=== PATIENT | male | born 1995 | race Caucasian/White ===

== ENCOUNTER 2017-02-27 16:59 | Emergency (ER) | payer SELFPAY ==
[~2017-02-27] VITALS: Ht 188 cm; Wt 69.2 kg
[2017-02-27 17:01] VITALS: BP 168/78
== END 2017-02-27 18:13 | disposition home or self-care (01) ==
LOC: ED 18:05
DX: S20.211A Contusion of right front wall of thorax, initial encounter (principal); F17.200 Nicotine dependence, unspecified, uncomplicated; W19.XXXA Unspecified fall, initial encounter; Y93.89 Activity, other specified; Y99.0 Civilian activity done for income or pay; Y92.69 Other specified industrial and construction area as the place of occurrence of the external cause
CPT/HCPCS: 99284

== ENCOUNTER 2017-05-07 19:15 | Emergency (ER) | payer MEDICAID, OTHER ==
[~2017-05-07] VITALS: Ht 188 cm; Wt 63.3 kg
[2017-05-07] MEDS ORDERED: SODIUM CHLORIDE FLUSH 10ML SYR IVF ONE (20:30)
[2017-05-07] MEDS ORDERED: SODIUM CHLORIDE 0.9% 1,000ML IV ONE (20:30)
[2017-05-07] MEDS ORDERED: KETOROLAC 30 MG/1 ML IVPush ONE (20:30)
[2017-05-07] MEDS ORDERED: KETOROLAC 30 MG/1 ML ONE (20:39)
[2017-05-07 20:41] LABS: HEMATOCRIT 49.5 % (39.2-51.8); HEMOGLOBIN 17.2 g/dL (13.7-18.0); WHITE BLOOD COUNT 9.7 x10^3/uL (3.4-10)
[2017-05-07 20:52] LABS: BLOOD UREA NITROGEN 20 mg/dL (7-18)
[2017-05-07 20:56] LABS: ASPARTATE AMINO TRANSFERASE 18 U/L (15-37)
[2017-05-07] MEDS ORDERED: CEFTRIAXONE 250 MG IM ONE (21:30)
[2017-05-07] MEDS ORDERED: AZITHROMYCIN 500 MG TABLET PO ONE (21:30)
[2017-05-07] MEDS ORDERED: CEFTRIAXONE 1,000 MG ONE (21:36)
[2017-05-07] MEDS ORDERED: LIDOCAINE 1%, 10ML ONE (21:36)
[2017-05-07] MEDS ORDERED: AZITHROMYCIN 250 MG TABLET ONE (21:36)
[2017-05-07 21:53] VITALS: BP 140/100
== END 2017-05-07 22:09 | disposition home or self-care (01) ==
LOC: ED 21:38
DX: A56.01 Chlamydial cystitis and urethritis (principal)
CPT/HCPCS: 36415; 74000; 76770; 80053; 81001; 85025; 87086; 87491; 87591; 96361; 96372; 96374; 99285; J0696; J1885; J7030

== ENCOUNTER 2017-06-05 15:09 | Emergency (ER) | payer MEDICAID ==
[~2017-06-05] VITALS: Ht 157.5 cm; Wt 70.0 kg
[2017-06-05] MEDS ORDERED: SODIUM CHLORIDE 0.9% 1,000 ML IV ONE (15:18)
[2017-06-05] MEDS ORDERED: SODIUM CHLORIDE FLUSH 10ML SYR IVF ONE (15:30)
[2017-06-05 15:39] LABS: BASOPHILS # (AUTO) 0.04 x10^3/uL (0-0.1); BASOPHILS % (AUTO) 1 % (0-1); EOSINOPHILS # (AUTO) 0.15 x10^3/uL (0-0.4); EOSINOPHILS % (AUTO) 2 % (1-7); LYMPHOCYTES # (AUTO) 2.56 x10^3/uL (1-3.4); LYMPHOCYTES % (AUTO) 39 % (22-44); MD NO; MEAN CORPUSCULAR HEMOGLOBIN 30.8 pg (27.5-34.5); MEAN CORPUSCULAR HGB CONC 34.4 g/dL (33.2-36.2); MEAN CORPUSCULAR VOLUME 89.4 fL (81-97); MEAN PLATELET VOLUME 6.7 fL (7.4-10.4); MONOCYTES # (AUTO) 0.82 x10^3/uL (0.2-0.8); MONOCYTES % (AUTO) 13 % (2-9); NEUTROPHILS # (AUTO) 2.96 x10^3/uL (1.8-6.8); NEUTROPHILS % (AUTO) 45 % (42-75); PLATELET COUNT 308 x10^3/uL (130-400); RED BLOOD COUNT 5.47 x10^6/uL (4.38-5.82); RED CELL DISTRIBUTION WIDTH 13.1 % (9.4-14.8)
[2017-06-05] MEDS ORDERED: LABETALOL 5MG/ML, 20ML ONE (15:53)
[2017-06-05] MEDS ORDERED: LORazepam 2 MG/ML, 1ML ONE (15:54)
[2017-06-05] MEDS ORDERED: SODIUM CHLORIDE 0.9% 1,000ML IVBOLUS ONE (16:00)
[2017-06-05] MEDS ORDERED: LABETALOL 5MG/ML, 20ML IVPush ONE (16:00)
[2017-06-05] MEDS ORDERED: LORazepam 2 MG/ML, 1ML IVPush ONE (16:00)
[2017-06-05 16:08] LABS: ALBUMIN 4.5 g/dL (3.4-5.0); ANION GAP 11 mmol/L (5-15); CALCIUM 9.2 mg/dL (8.5-10.1); CHLORIDE 106 mmol/L (98-107)
[2017-06-05 16:16] LABS: ALANINE AMINOTRANSFERASE 42 U/L (12-78); ALKALINE PHOSPHATASE 87 U/L (45-117); BILIRUBIN,TOTAL 0.6 mg/dL (0.2-1.0); CREATININE 1.05 mg/dL (0.7-1.3); TOTAL PROTEIN 8.3 g/dL (6.4-8.2); TROPONIN I < 0.015 ng/mL (0.000-0.045)
[2017-06-05] MEDS ORDERED: KETOROLAC 30 MG/1 ML ONE (16:25)
[2017-06-05] MEDS ORDERED: OMNIPAQUE 350 MG/ML, 100ML BOTTLE ONE (16:30)
[2017-06-05 17:46] VITALS: BP 113/68
== END 2017-06-05 18:09 | disposition home or self-care (01) ==
LOC: ED 17:42
DX: R07.89 Other chest pain (principal); F41.9 Anxiety disorder, unspecified
CPT/HCPCS: 36415; 71045; 71275; 80053; 84484; 85025; 93005; 96361; 96374; 96375; 99285; J2060; J7030; Q9967

== ENCOUNTER 2018-01-23 18:09 | Emergency (ER) | payer MEDICAID ==
[~2018-01-23] VITALS: Ht 188 cm; Wt 90.1 kg
[2018-01-23 18:31] VITALS: BP 113/77
[2018-01-23 19:14] LABS: BASOPHILS # (AUTO) 0.03 x10^3/uL (0-0.1); BASOPHILS % (AUTO) 1 % (0-1); EOSINOPHILS # (AUTO) 0.08 x10^3/uL (0-0.4); EOSINOPHILS % (AUTO) 1 % (1-7); LYMPHOCYTES # (AUTO) 1.98 x10^3/uL (1-3.4); LYMPHOCYTES % (AUTO) 30 % (22-44); MD NO; MEAN CORPUSCULAR HEMOGLOBIN 31.1 pg (27.5-34.5); MEAN CORPUSCULAR VOLUME 88.8 fL (81-97); MEAN PLATELET VOLUME 7.1 fL (7.4-10.4); MONOCYTES # (AUTO) 0.45 x10^3/uL (0.2-0.8); MONOCYTES % (AUTO) 7 % (2-9); NEUTROPHILS # (AUTO) 4.11 x10^3/uL (1.8-6.8); NEUTROPHILS % (AUTO) 62 % (42-75); PLATELET COUNT 211 x10^3/uL (130-400); RED BLOOD COUNT 5.53 x10^6/uL (4.38-5.82)
[2018-01-23 19:23] LABS: CALCIUM 9.5 mg/dL (8.5-10.1); CHLORIDE 104 mmol/L (98-107)
[2018-01-23 19:29] LABS: ALANINE AMINOTRANSFERASE 29 U/L (12-78); ALBUMIN 4.7 g/dL (3.4-5.0); ALKALINE PHOSPHATASE 85 U/L (45-117); ANION GAP 5 mmol/L (5-15); TOTAL PROTEIN 8.4 g/dL (6.4-8.2)
[2018-01-23] MEDS ORDERED: MORPHINE SULFATE 4 MG/ML, 1ML IVPush PRN (19:30)
[2018-01-23] MEDS ORDERED: SODIUM CHLORIDE FLUSH 10ML SYR IVF ONE (19:30)
[2018-01-23 19:32] LABS: MICROSCOPIC NOT IND
[2018-01-23 19:35] LABS: CULTURE INDICATED? NO
[2018-01-23] MEDS ORDERED: MORPHINE SULFATE 4 MG/ML, 1ML ONE (19:51)
== END 2018-01-23 21:44 | disposition home or self-care (01) ==
LOC: ED 20:58
DX: K29.00 Acute gastritis without bleeding (principal); F17.200 Nicotine dependence, unspecified, uncomplicated
CPT/HCPCS: 36415; 74022; 76700; 80053; 81003; 83690; 85025; 93005; 96374

== ENCOUNTER 2018-05-23 22:51 | Observation (INO) | payer MEDICAID, OTHER ==
[~2018-05-23] VITALS: Ht 188 cm; Wt 70.0 kg
--- NOTE | 2018-05-23 23:16 | NUR ---
PT SENT HERE FOR [facility] ON A LEGAL HOLD. PT WRAPPED PHONE CORD AROUND NECK 3 DAYS AGO TO HELP SLEEP. PT HAS BEEN SMOKING HEROIN FOR APPROX 4 MONTHS. VSS. UA SENT TO LAB. ROOM SECURED. 1 BAG AND BACKPACK PLACED LABELED AND SECURED. PT HAS NO NEEDS AT THIS TIME.
[2018-05-23 23:28] LABS: AMPHETAMINE SCREEN, URINE Negative (Negative); BARBITURATE SCREEN, URINE Negative (Negative); BENZODIAZEPINE SCREEN, URINE Negative (Negative); CANNABINOID SCREEN, URINE Positive (Negative); COCAINE SCREEN, URINE Negative (Negative); METHADONE SCREEN, URINE Negative (Negative); OPIATE SCREEN, URINE Positive (Negative)
[2018-05-23 23:46] LABS: BASOPHILS # (AUTO) 0.04 x10^3/uL (0-0.1); BASOPHILS % (AUTO) 1 % (0-1); EOSINOPHILS # (AUTO) 0.19 x10^3/uL (0-0.4); EOSINOPHILS % (AUTO) 2 % (1-7); LYMPHOCYTES # (AUTO) 2.82 x10^3/uL (1-3.4); LYMPHOCYTES % (AUTO) 34 % (22-44); MD NO; MEAN CORPUSCULAR HGB CONC 34.1 g/dL (33.2-36.2); MEAN CORPUSCULAR VOLUME 90.9 fL (81-97); MEAN PLATELET VOLUME 7.5 fL (7.4-10.4); MONOCYTES # (AUTO) 0.78 x10^3/uL (0.2-0.8); MONOCYTES % (AUTO) 9 % (2-9); NEUTROPHILS # (AUTO) 4.44 x10^3/uL (1.8-6.8); NEUTROPHILS % (AUTO) 54 % (42-75); PLATELET COUNT 227 x10^3/uL (130-400); RED CELL DISTRIBUTION WIDTH 12.3 % (9.4-14.8)
[2018-05-23 23:49] LABS: ALBUMIN 4.3 g/dL (3.4-5.0); ANION GAP 7 mmol/L (5-15); CALCIUM 8.7 mg/dL (8.5-10.1); CHLORIDE 104 mmol/L (98-107)
[2018-05-23 23:53] LABS: ALANINE AMINOTRANSFERASE 32 U/L (12-78); ALKALINE PHOSPHATASE 70 U/L (45-117); BILIRUBIN,TOTAL 0.8 mg/dL (0.2-1.0); CREATININE 1.05 mg/dL (0.7-1.3); SALICYLATE LEVEL 3.6 mg/dL (2.8-20.0); TOTAL PROTEIN 7.7 g/dL (6.4-8.2)
[2018-05-23 23:54] LABS: ACETAMINOPHEN < 2 mcg/mL (10-30)
--- NOTE | 2018-05-24 00:49 | NUR ---
ADMITTING MD AT BEDSIDE
[2018-05-24 01:28] VITALS: BP 132/88
[2018-05-24] MEDS ORDERED: LIDODERM 5% PATCH TD PRN (01:30)
[2018-05-24] MEDS ORDERED: NICOTINE 21 MG/24 HR PATCH.TD24 TD SCH (01:30)
[2018-05-24] MEDS ORDERED: DOCUSATE 100 MG CAPSULE PO PRN (01:30)
[2018-05-24] MEDS ORDERED: ONDANSETRON ODT 4 MG PO PRN (01:30)
[2018-05-24 08:17] VITALS: BP 120/71
[2018-05-24] MEDS ORDERED: LOPERAMIDE 2 MG CAPSULE PO PRN (13:30)
[2018-05-24] MEDS: LORazepam 0.5MG TABLET PO PRN ×2 (14:23→20:26)
[2018-05-24 14:30] VITALS: BP_SYST 103; BP_SYST 110; BP_DIAS 69; BP_DIAS 75
[2018-05-24 19:47] VITALS: BP 99/67
[2018-05-24] MEDS: TRAZODONE 50MG TABLET PO PRN (20:25)
[2018-05-24] MEDS: NICOTINE 21 MG/24 HR PATCH.TD24 TD SCH (20:25)
[2018-05-25] MEDS: LORazepam 0.5MG TABLET PO PRN ×4 (00:32→20:11)
[2018-05-25] MEDS: ACETAMINOPHEN 325 MG TABLET PO PRN ×3 (00:32→20:11)
[2018-05-25 07:58] VITALS: BP 132/80
[2018-05-25] MEDS ORDERED: ZIPRASIDONE 20 MG INJ IM ONE (12:00)
[2018-05-25 15:08] VITALS: BP 152/114
[2018-05-25] MEDS: NICOTINE 21 MG/24 HR PATCH.TD24 TD SCH (15:39)
[2018-05-25 20:00] VITALS: BP 101/66
[2018-05-25] MEDS: TRAZODONE 50MG TABLET PO PRN (20:11)
[2018-05-26] MEDS: LORazepam 0.5MG TABLET PO PRN ×2 (00:23→08:32)
[2018-05-26 08:25] VITALS: BP 108/73
[2018-05-26 13:10] VITALS: BP 133/72
[2018-05-26] MEDS ORDERED: LORazepam 2 MG/ML, 1ML IM STA (13:12)
[2018-05-26] MEDS ORDERED: LORazepam 2 MG/ML, 1ML ONE (13:14)
[2018-05-26] MEDS ORDERED: LORazepam 2 MG/ML, 1ML IM PRN (13:30)
[2018-05-26] MEDS ORDERED: LORazepam 1MG TABLET ONE (13:33)
[2018-05-26] MEDS ORDERED: LORazepam 1MG TABLET PO ONE (14:00)
[2018-05-26] MEDS: NICOTINE 21 MG/24 HR PATCH.TD24 TD SCH (18:04)
[2018-05-26 20:06] VITALS: BP 120/72
[2018-05-26] MEDS: TRAZODONE 50MG TABLET PO PRN (20:16)
[2018-05-26] MEDS: LORazepam 1MG TABLET PO PRN (21:38)
[2018-05-27] MEDS: LORazepam 1MG TABLET PO PRN ×4 (03:41→20:52)
[2018-05-27 08:00] VITALS: BP 103/66
[2018-05-27] MEDS: ACETAMINOPHEN 325 MG TABLET PO PRN (11:46)
[2018-05-27 14:10] VITALS: BP 115/68
[2018-05-27] MEDS: NICOTINE 21 MG/24 HR PATCH.TD24 TD SCH (16:52)
[2018-05-27 19:19] VITALS: BP 114/65
[2018-05-27] MEDS: TRAZODONE 50MG TABLET PO PRN (20:52)
[2018-05-28] MEDS: LORazepam 1MG TABLET PO PRN ×5 (00:39→20:58)
[2018-05-28 07:36] VITALS: BP 111/75
[2018-05-28] MEDS: NICOTINE 21 MG/24 HR PATCH.TD24 TD SCH (18:37)
[2018-05-28 20:24] VITALS: BP 129/84
[2018-05-28] MEDS: TRAZODONE 50MG TABLET PO PRN (20:58)
[2018-05-29] MEDS: LORazepam 1MG TABLET PO PRN (07:48)
[2018-05-29] MEDS: ACETAMINOPHEN 325 MG TABLET PO PRN ×2 (07:49→12:26)
[2018-05-29 07:58] VITALS: BP 108/70
[2018-05-29] MEDS ORDERED: IBUPROFEN 600 MG TABLET PO PRN (14:30)
[2018-05-29 14:32] VITALS: BP 128/87
[2018-05-29] MEDS: LORazepam 0.5MG TABLET PO PRN ×2 (15:00→20:14)
[2018-05-29] MEDS: NICOTINE 21 MG/24 HR PATCH.TD24 TD SCH (18:31)
[2018-05-29 19:41] VITALS: BP 122/74
[2018-05-29] MEDS: TRAZODONE 50MG TABLET PO PRN (20:14)
[2018-05-30 07:30] VITALS: BP 115/74
== END 2018-05-30 12:03 | disposition home or self-care (01) ==
LOC: ED 23:24 → INTOOBSV 05-24 00:27 → EDIP 05-24 00:27 → 2N 05-24 01:29
PROVIDERS: ADMIT Hospitalist; ATTEND Hospitalist
DX: T14.91XA Suicide attempt, initial encounter (principal); F15.90 Other stimulant use, unspecified, uncomplicated; F17.210 Nicotine dependence, cigarettes, uncomplicated; F33.9 Major depressive disorder, recurrent, unspecified; X83.8XXA Intentional self-harm by other specified means, initial encounter; Y93.89 Activity, other specified; Y92.89 Other specified places as the place of occurrence of the external cause; Y99.8 Other external cause status
CPT/HCPCS: 36415; 80053; 80307; 80329; 85025; 93005; 96372; 99284; G0378; J2060; J3486; G0480

== ENCOUNTER 2019-05-20 14:14 | Emergency (ER) | payer MEDICAID ==
--- NOTE | 2019-05-20 14:23 | NUR ---
NIL FOR TRIAGE
--- NOTE | 2019-05-20 14:41 | NUR ---
[email or web address]@[id number]
--- NOTE | 2019-05-20 14:57 | NUR ---
[email or web address]@[id number]
== END 2019-05-20 14:59 | disposition left against medical advice (07) ==
LOC: ED 14:48
DX: R05 Cough (principal); Z53.21 Procedure and treatment not carried out due to patient leaving prior to being seen by health care provider

== ENCOUNTER 2019-09-10 15:01 | Emergency (ER) | payer MEDICAID, OTHER ==
[~2019-09-10] VITALS: Ht 193 cm; Wt 67.7 kg
[2019-09-10 15:04] VITALS: BP 147/92
[2019-09-10 15:32] LABS: BASOPHILS # (AUTO) 0.03 x10^3/uL (0-0.1); BASOPHILS % (AUTO) 1 % (0-1); EOSINOPHILS # (AUTO) 0.12 x10^3/uL (0-0.4); EOSINOPHILS % (AUTO) 2 % (1-7); LYMPHOCYTES # (AUTO) 2.04 x10^3/uL (1-3.4); LYMPHOCYTES % (AUTO) 34 % (22-44); MD NO; MEAN CORPUSCULAR HEMOGLOBIN 30.9 pg (27.5-34.5); MEAN CORPUSCULAR HGB CONC 33.8 g/dL (33.2-36.2); MEAN CORPUSCULAR VOLUME 91.3 fL (81-97); MEAN PLATELET VOLUME 6.8 fL (7.4-10.4); MONOCYTES % (AUTO) 8 % (2-9); NEUTROPHILS # (AUTO) 3.27 x10^3/uL (1.8-6.8); NEUTROPHILS % (AUTO) 55 % (42-75); PLATELET COUNT 216 x10^3/uL (130-400); RED BLOOD COUNT 4.23 x10^6/uL (4.38-5.82); RED CELL DISTRIBUTION WIDTH 12.5 % (9.4-14.8)
[2019-09-10 15:43] LABS: ALANINE AMINOTRANSFERASE 27 U/L (12-78); ALBUMIN 3.8 g/dL (3.4-5.0); ANION GAP 6 mmol/L (5-15); CALCIUM 9.1 mg/dL (8.5-10.1); CHLORIDE 104 mmol/L (98-107); CREATININE 1.02 mg/dL (0.7-1.3)
[2019-09-10 15:46] LABS: ALKALINE PHOSPHATASE 74 U/L (45-117); BILIRUBIN,TOTAL 0.4 mg/dL (0.2-1.0); TOTAL PROTEIN 7.3 g/dL (6.4-8.2)
== END 2019-09-10 16:54 | disposition home or self-care (01) ==
LOC: ED 15:26
DX: K02.9 Dental caries, unspecified (principal); K08.89 Other specified disorders of teeth and supporting structures; R94.31 Abnormal electrocardiogram [ECG] [EKG]
CPT/HCPCS: 36415; 80053; 85025; 93005; 99284

== ENCOUNTER 2019-12-04 16:15 | Emergency (ER) | payer BC, OTHER ==
[~2019-12-04] VITALS: Ht 185.4 cm; Wt 65.2 kg
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
[2019-12-04] MEDS ORDERED: MAALOX/HYOSCYAMINE/LIDOCAINE 45 ML BTL ONE (16:41)
--- NOTE | 2019-12-04 16:49 | NUR ---
PT AMBULATED TO THE BR W/ A STEADY GAIT. URINE COLLECTED AND SENT TO LAB.
--- NOTE | 2019-12-04 16:59 | NUR ---
US AT BEDSIDE.
[2019-12-04] MEDS ORDERED: MAALOX/HYOSCYAMINE/LIDOCAINE 45 ML BTL PO ONE (17:00)
[2019-12-04 17:02] LABS: MICROSCOPIC NOT IND
[2019-12-04 17:48] LABS: BASOPHILS # (AUTO) 0.02 x10^3/uL (0-0.1); BASOPHILS % (AUTO) 0 % (0-1); EOSINOPHILS # (AUTO) 0.08 x10^3/uL (0-0.4); EOSINOPHILS % (AUTO) 2 % (1-7); LYMPHOCYTES # (AUTO) 1.64 x10^3/uL (1-3.4); LYMPHOCYTES % (AUTO) 32 % (22-44); MD NO; MEAN CORPUSCULAR HEMOGLOBIN 30.8 pg (27.5-34.5); MEAN CORPUSCULAR HGB CONC 34.7 g/dL (33.2-36.2); MEAN CORPUSCULAR VOLUME 88.9 fL (81-97); MEAN PLATELET VOLUME 7.4 fL (7.4-10.4); MONOCYTES # (AUTO) 0.37 x10^3/uL (0.2-0.8); MONOCYTES % (AUTO) 7 % (2-9); NEUTROPHILS # (AUTO) 2.98 x10^3/uL (1.8-6.8); NEUTROPHILS % (AUTO) 59 % (42-75); PLATELET COUNT 205 x10^3/uL (130-400); RED BLOOD COUNT 4.72 x10^6/uL (4.38-5.82); RED CELL DISTRIBUTION WIDTH 12.5 % (9.4-14.8)
[2019-12-04 17:54] LABS: ALBUMIN 3.8 g/dL (3.4-5.0); ANION GAP 4 mmol/L (5-15); CALCIUM 8.7 mg/dL (8.5-10.1); CHLORIDE 105 mmol/L (98-107)
[2019-12-04 17:57] LABS: ALANINE AMINOTRANSFERASE 28 U/L (12-78); ALKALINE PHOSPHATASE 73 U/L (45-117); BILIRUBIN,TOTAL 0.6 mg/dL (0.2-1.0); CREATININE 1.09 mg/dL (0.7-1.3); TOTAL PROTEIN 7.4 g/dL (6.4-8.2)
[2019-12-04 18:15] VITALS: BP 120/74
--- NOTE | 2019-12-04 18:17 | NUR ---
ALL TESTS RESULTED, PT IS UP FOR RECHECK AT THIS TIME. VSS, NADN.
== END 2019-12-04 18:53 | disposition home or self-care (01) ==
LOC: ED 17:31
DX: K52.9 Noninfective gastroenteritis and colitis, unspecified (principal)
CPT/HCPCS: 36415; 76700; 80053; 81003; 83690; 85025; 99284

== ENCOUNTER 2020-08-24 05:10 | Emergency (ER) | payer SELFPAY ==
[~2020-08-24] VITALS: Ht 182.9 cm; Wt 68.3 kg
[2020-08-24 06:17] LABS: BASOPHILS % (AUTO) 1 % (0-1); EOSINOPHILS % (AUTO) 2 % (1-7); LYMPHOCYTES % (AUTO) 42 % (22-44); MEAN CORPUSCULAR HEMOGLOBIN 30.8 pg (27.5-34.5); MEAN CORPUSCULAR HGB CONC 35.4 g/dL (33.2-36.2); MEAN PLATELET VOLUME 6.7 fL (7.4-10.4); MONOCYTES % (AUTO) 11 % (2-9); NEUTROPHILS % (AUTO) 44 % (42-75); PLATELET COUNT 204 x10^3/uL (130-400); RED BLOOD COUNT 4.64 x10^6/uL (4.38-5.82); RED CELL DISTRIBUTION WIDTH 12.5 % (9.4-14.8)
[2020-08-24 06:19] LABS: MD NO
[2020-08-24 06:33] LABS: ALANINE AMINOTRANSFERASE 35 U/L (12-78); ALBUMIN 3.7 g/dL (3.4-5.0); ANION GAP 5 mmol/L (5-15); CALCIUM 8.6 mg/dL (8.5-10.1); CHLORIDE 104 mmol/L (98-107); CREATININE 1.19 mg/dL (0.7-1.3)
[2020-08-24 06:35] LABS: ALKALINE PHOSPHATASE 66 U/L (45-117); BILIRUBIN,TOTAL 0.3 mg/dL (0.2-1.0); TOTAL PROTEIN 6.8 g/dL (6.4-8.2)
--- NOTE | 2020-08-24 07:16 | NUR ---
SBAR HAND-OFF REPORT RECEIVED FROM NIURKA SCHNEIDER. ASSUMING CARE OF PATIENT.
[2020-08-24 07:51] VITALS: BP 108/64
--- NOTE | 2020-08-24 07:52 | NUR ---
Patient given discharge instructions and they have confirmed that they understand the instructions. Patient ambulatory with steady gait.
== END 2020-08-24 07:53 | disposition home or self-care (01) ==
LOC: ED 06:11
DX: M54.2 Cervicalgia (principal); R07.89 Other chest pain; Z87.891 Personal history of nicotine dependence
CPT/HCPCS: 36415; 70360; 71046; 80053; 85025; 93005; 99285

== ENCOUNTER 2020-12-07 21:31 | Observation (INO) | payer OTHER ==
[~2020-12-07] VITALS: Ht 185.4 cm; Wt 65.0 kg
[2020-12-07 22:32] LABS: BASOPHILS % (AUTO) 1 % (0-1); EOSINOPHILS % (AUTO) 2 % (1-7); LYMPHOCYTES % (AUTO) 41 % (22-44); MEAN CORPUSCULAR HEMOGLOBIN 31.3 pg (27.5-34.5); MEAN CORPUSCULAR HGB CONC 35.4 g/dL (33.2-36.2); MEAN PLATELET VOLUME 6.7 fL (7.4-10.4); MONOCYTES % (AUTO) 10 % (2-9); NEUTROPHILS % (AUTO) 46 % (42-75); PLATELET COUNT 194 x10^3/uL (130-400); RED BLOOD COUNT 4.39 x10^6/uL (4.38-5.82)
[2020-12-07 22:42] LABS: AMPHETAMINE SCREEN, URINE Positive (Negative); BARBITURATE SCREEN, URINE Negative (Negative); BENZODIAZEPINE SCREEN, URINE Negative (Negative); CANNABINOID SCREEN, URINE Positive (Negative); COCAINE SCREEN, URINE Negative (Negative); METHADONE SCREEN, URINE Negative (Negative); OPIATE SCREEN, URINE Negative (Negative)
[2020-12-07 22:44] LABS: ALANINE AMINOTRANSFERASE 61 U/L (12-78); ALBUMIN 3.4 g/dL (3.4-5.0); ANION GAP 4 mmol/L (5-15); CALCIUM 8.8 mg/dL (8.5-10.1); CHLORIDE 105 mmol/L (98-107); CREATININE 0.86 mg/dL (0.7-1.3); SALICYLATE LEVEL 2.3 mg/dL (2.8-20.0)
[2020-12-07 22:55] LABS: ALKALINE PHOSPHATASE 90 U/L (45-117); BILIRUBIN,TOTAL 0.4 mg/dL (0.2-1.0); TOTAL PROTEIN 6.9 g/dL (6.4-8.2)
[2020-12-07] MEDS ORDERED: NICOTINE 14MG/24 HR PATCH.TD24 ONE (23:29)
[2020-12-07] MEDS ORDERED: NICOTINE 14MG/24 HR PATCH.TD24 TD ONE (23:30)
--- NOTE | 2020-12-08 | NUR ---
pt provided snacks per request, resting in gurney at this time. in line of sight of allison.
--- NOTE | 2020-12-08 00:53 | NUR ---
TP: PT IS SELF PAY. PACKET FAXED TO [facility].
--- NOTE | 2020-12-08 01:15 | NUR ---
pt sleeping in gurkinards. resp even/unlabored. in line of sight of allison
[2020-12-08] MEDS ORDERED: HYDROXYZINE PAMOATE 50MG CAP PO ONE (01:30)
--- NOTE | 2020-12-08 02:43 | NUR ---
PT MEDICATED FOR SLEEP PER EMAR. DENIES ANY OTHER NEEDS. IN LINE OF SIGHT OF SITTER
--- NOTE | 2020-12-08 03:32 | NUR ---
pt sleeping, resp even/unlabored. in line of sight of sitter
--- NOTE | 2020-12-08 05:17 | NUR ---
pt placed on hospital bed, denies any other needs at this time. in line of sight of sitter
--- NOTE | 2020-12-08 06:37 | NUR ---
pt sleeping in bed, resp even/unlabored. in line of sight of sitter. so s/s of acute distress
--- NOTE | 2020-12-08 07:02 | NUR ---
report given to odette gomez
--- NOTE | 2020-12-08 07:10 | NUR ---
Report from NIURKA Baumann. Pt sleeping, resps even and unlabored. In view of sitter.
--- NOTE | 2020-12-08 08:57 | NUR ---
Pt ate breakfast at 0800. Sitter aware to inquire with pt about showering when he wakes again.
--- NOTE | 2020-12-08 08:58 | NUR ---
1 labeled belonging bag verified in psych locker bin #2.
[2020-12-08] MEDS ORDERED: DOXEPIN 25 MG CAPSULE PO PRN (10:00)
[2020-12-08] MEDS ORDERED: HALOPERIDOL 5 MG/ML IM PRN (10:00)
[2020-12-08] MEDS ORDERED: HALOPERIDOL 5 MG TABLET PO PRN (10:00)
[2020-12-08] MEDS ORDERED: LORazepam 1MG TABLET PO PRN (10:00)
[2020-12-08] MEDS ORDERED: DIPHENHYDRAMINE 50 MG CAPSULE PO PRN (10:00)
[2020-12-08] MEDS ORDERED: LORazepam 2 MG/ML, 1ML IM PRN (10:00)
[2020-12-08] MEDS ORDERED: DIPHENHYDRAMINE 50 MG/ML, 1ML IM PRN (10:00)
[2020-12-08] MEDS ORDERED: LORazepam 1MG TABLET ONE (12:20)
--- NOTE | 2020-12-08 13:10 | NUR ---
PT REPORT FROM NIURKA ANDERSON. PT CARE TO BE ASSUMED. PT RESTING QUIETLY ON GURNEY. PT CONSUMED LUNCH; REQUESTING CRACKERS - WILL BE PROVIDED. SITTER OUTSIDE ROOM.
--- NOTE | 2020-12-08 14:28 | NUR ---
PT ENDORSED TO ADELAIDE GALLARDO RN. SITTER OUTSIDE ROOM.
--- NOTE | 2020-12-08 15:09 | NUR ---
PT CARE RESUMED.
--- NOTE | 2020-12-08 15:14 | NUR ---
PT ASLEEP. SITTER OUTSIDE ROOM
--- NOTE | 2020-12-08 15:58 | NUR ---
PT ASLEEP; RESP EVEN & UNLABORED. SITTER OUTSIDE ROOM.
--- NOTE | 2020-12-08 17:31 | NUR ---
DINNER TRAY ORDERED.
--- NOTE | 2020-12-08 17:41 | NUR ---
PT ASLEEP; RESP UNLABORED. SITTER OUTSIDE ROOM.
--- NOTE | 2020-12-08 18:04 | NUR ---
PT ASLEEP; EASILY AWAKENED. DINNER TRAY DELIVERED.
--- NOTE | 2020-12-08 18:55 | NUR ---
BESIDE REPORT TO NIURKA MAIN. PT CARE TRANSFERRED. SITTER OUTSIDE DOOR.
--- NOTE | 2020-12-08 19:02 | NUR ---
PT LAYING IN BED, A/OX4, ALL NEEDS IN REACH, CALL LIGHT IN REACH, NAD AT THIS TIME, SITTER IN LINE OF SIGHT
--- NOTE | 2020-12-08 20:15 | NUR ---
PT ASLEEP IN BED, GARAGE DOORS DOWN, SITTER IN LINE OF SIGHT, ALL NEEDS IN REACH, CALL LIGHT IN REACH, NAD AT THIS TIME
--- NOTE | 2020-12-08 21:15 | NUR ---
PT ASLEEP IN BED, GARAGE DOORS DOWN, SITTER IN LINE OF SIGHT, ALL NEEDS IN REACH, CALL LIGHT IN REACH, NAD AT THIS TIME
--- NOTE | 2020-12-08 23:03 | NUR ---
PT ASLEEP IN BED, GARAGE DOORS DOWN, SITTER IN LINE OF SIGHT, ALL NEEDS IN REACH, CALL LIGHT IN REACH, NAD AT THIS TIME
--- NOTE | 2020-12-09 00:59 | NUR ---
PT ASLEEP IN BED, GARAGE DOORS DOWN, SITTER IN LINE OF SIGHT, ALL NEEDS IN REACH, CALL LIGHT IN REACH, NAD AT THIS TIME
--- NOTE | 2020-12-09 01:14 | NUR ---
PT ASLEEP IN BED, GARAGE DOORS DOWN, SITTER IN LINE OF SIGHT, ALL NEEDS IN REACH, CALL LIGHT IN REACH, NAD AT THIS TIME
--- NOTE | 2020-12-09 02:11 | NUR ---
Pt sleeping at this time, denies needs.
--- NOTE | 2020-12-09 03:00 | NUR ---
PT ASLEEP IN BED, GARAGE DOORS DOWN, SITTER IN LINE OF SIGHT, ALL NEEDS IN REACH, CALL LIGHT IN REACH, NAD AT THIS TIME
--- NOTE | 2020-12-09 04:00 | NUR ---
PT ASLEEP IN BED, GARAGE DOORS DOWN, SITTER IN LINE OF SIGHT, ALL NEEDS IN REACH, CALL LIGHT IN REACH, NAD AT THIS TIME
--- NOTE | 2020-12-09 05:00 | NUR ---
PT ASLEEP IN BED, GARAGE DOORS DOWN, SITTER IN LINE OF SIGHT, ALL NEEDS IN REACH, CALL LIGHT IN REACH, NAD AT THIS TIME
--- NOTE | 2020-12-09 06:00 | NUR ---
PT ASLEEP IN BED, GARAGE DOORS DOWN, SITTER IN LINE OF SIGHT, ALL NEEDS IN REACH, CALL LIGHT IN REACH, NAD AT THIS TIME
--- NOTE | 2020-12-09 06:59 | NUR ---
Report given to NIURKA Su no further questions at this time.
--- NOTE | 2020-12-09 07:02 | NUR ---
BEDSIDE REPORT TAKEN FROM AMANDA BAH
--- NOTE | 2020-12-09 07:07 | NUR ---
pt sleeping in bed, resps even and unlabored, nadn. all security precautions in place, room secured, sitter at bedside.
--- NOTE | 2020-12-09 08:53 | NUR ---
pt sitting in bed, a&o, resps even and unlabored, vss, nadn. upon reassessment, pt states they are not feeling suicidal at this time. pt states they had a "great night of sleep and dreamt of [patient's] son throughout the night" and is looking forward to seeing them. pt is calm and cooperative. all security precautions in place, garage doors down, sitter at bedside, breakfast tray provided.
[2020-12-09] MEDS ORDERED: SERTRALINE 50MG TABLET PO SCH (09:00)
[2020-12-09] MEDS ORDERED: NICOTINE 21 MG/24 HR PATCH.TD24 TD PRN (09:00)
[2020-12-09] MEDS ORDERED: SERTRALINE 50MG TABLET ONE (10:42)
--- NOTE | 2020-12-09 10:54 | NUR ---
PT MEDICATED PER ORDER, TOLERATED WELL. PT A&O, RESPS EVEN AND UNLABORED, VSS, ALL SECURITY PRECAUTIONS IN PLACE, SITTER AT BEDSIDE, BRADLEYN.
--- NOTE | 2020-12-09 12:20 | NUR ---
PT SLEEPING ON HOSPITAL BED , RESPS EVEN AND UNLABORED. ROOM SECURE. SITTER MONITORING FROM [facility] FOR SAFETY. MEAL TRAY ORDERED.
--- NOTE | 2020-12-09 13:00 | NUR ---
SI MEAL TRAY GIVEN TO PT. ROOM SECURE, SITTER MONITORING FROM [facility] FOR SAFETY. PT TOLERATING MEAL TRAY WELL.
--- NOTE | 2020-12-09 13:43 | NUR ---
report given to arabella Whiting
--- NOTE | 2020-12-09 14:30 | NUR ---
report received from NIURKA Whiting, pt resting on hospital bed, resps even and unlabored. room secure. sitter monitoring from [facility] for safety.
--- NOTE | 2020-12-09 15:30 | NUR ---
VS reassessed, pt is elo, requesting update regarding POC. pt states "if I had insurance I'd be out of here." POC explained by this RN and psych ALMA DELIA Degroot who is at bedside. pt awaiting psych placement. room secure, sitter monitoring from [facility] for safety.
[2020-12-09] MEDS ORDERED: GABAPENTIN 300 MG CAPSULE PO SCH (16:30)
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
--- NOTE | 2020-12-09 17:15 | NUR ---
SI meal tray delivered, pt is discussing safe discharge plan with nae howard. room secure. sitter monitoring from [facility] for safety.
[2020-12-09] MEDS ORDERED: GABAPENTIN 300 MG CAPSULE ONE (17:19)
--- NOTE | 2020-12-09 18:21 | NUR ---
PT RESTING IN BED, A&O, RESPS EVEN AND UNLABORED, VSS, NADN. ALL SECURITY PRECAUTIONS IN PLACE, SITTER WITHIN VIEW IN HALLWAY
--- NOTE | 2020-12-09 19:00 | NUR ---
report given to odette cardoza
--- NOTE | 2020-12-09 19:06 | NUR ---
Report from Anjel BAH
--- NOTE | 2020-12-09 19:09 | NUR ---
Pt resting in bed, went over plan to MERRILL SANCHEZ
--- NOTE | 2020-12-09 19:50 | NUR ---
pt continues to rest in bed, sitter in view of pt, NADN
[2020-12-09 19:58] VITALS: BP 128/78
--- NOTE | 2020-12-09 20:06 | NUR ---
Clarified that pt will need taxi voucher for safe DC, his mom does not own a car and takes the bus home. She will meet pt at her house at 10pm when she is off work.
--- NOTE | 2020-12-09 20:50 | NUR ---
Pt resting in bed watching TV, sitter in view of pt, NADN, WCTM
--- NOTE | 2020-12-09 22:09 | NUR ---
PT GIVEN ALL BELONGINGS AND TAXI VOUCHER FOR SAFE DC
== END 2020-12-09 22:47 | disposition home or self-care (01) ==
LOC: ED 22:25 → EDIP 12-08 01:02
PROVIDERS: ADMIT Student in an Organized Health Care Education/Training Program; ATTEND Student in an Organized Health Care Education/Training Program
DX: F33.2 Major depressive disorder, recurrent severe without psychotic features (principal); R45.851 Suicidal ideations; F41.1 Generalized anxiety disorder; F15.129 Other stimulant abuse with intoxication, unspecified; F43.21 Adjustment disorder with depressed mood; F43.10 Post-traumatic stress disorder, unspecified; F17.200 Nicotine dependence, unspecified, uncomplicated; Z63.8 Other specified problems related to primary support group; Z91.14 Patient's other noncompliance with medication regimen; Z72.9 Problem related to lifestyle, unspecified; Z79.899 Other long term (current) drug therapy
CPT/HCPCS: 36415; 80053; 80299; 80307; 80320; 80329; 84443; 85025; 99284; G0378; G0480

== ENCOUNTER 2021-02-07 07:47 | Emergency (ER) | payer OTHER ==
[~2021-02-07] VITALS: Ht 185.4 cm; Wt 75.1 kg
[2021-02-07 08:02] VITALS: BP 142/82
--- NOTE | 2021-02-07 08:26 | NUR ---
SHIP CONSTRUCTION TEACHER: Patient/Caregiver given discharge instructions and they have confirmed that they understand the instructions. Patient ambulatory with steady gait. NAD, all questions answered appropriately, denies additional needs at this time. No personal belongings left in room after discharge.
== END 2021-02-07 08:27 | disposition home or self-care (01) ==
LOC: ED 08:21
DX: K02.9 Dental caries, unspecified (principal); K08.89 Other specified disorders of teeth and supporting structures
CPT/HCPCS: 99283

== ENCOUNTER 2021-02-13 18:42 | Emergency (ER) | payer OTHER ==
[~2021-02-13] VITALS: Ht 185.4 cm; Wt 77.0 kg
[2021-02-13 19:06] VITALS: BP 161/109
--- NOTE | 2021-02-13 19:59 | NUR ---
pt to room from lobby
--- NOTE | 2021-02-13 20:07 | NUR ---
PT NOT IN LOBBY. NAX 1 @ 2007
--- NOTE | 2021-02-13 20:21 | NUR ---
NA X 2
--- NOTE | 2021-02-13 20:47 | NUR ---
not in lobby
== END 2021-02-13 20:48 | disposition left against medical advice (07) ==
LOC: ED 19:00
DX: K08.89 Other specified disorders of teeth and supporting structures (principal)
CPT/HCPCS: 99281